=== PATIENT | male | born 1970 | race Caucasian/White ===

== ENCOUNTER 2018-01-04 16:08 | Emergency (ER) | payer OTHER ==
[2018-01-04 16:08] VITALS: BMI 34.1
[2018-01-04 16:44] VITALS: RESP 18; TEMP 98.2
[2018-01-04] MEDS ORDERED: Sodium Chloride 0.9% 500 ML IV STA (17:46)
[2018-01-04] MEDS ORDERED: Morphine 4 mg/ml ISec IVP STA (17:46)
[2018-01-04] MEDS ORDERED: Morphine 2 mg/ml ISec IVP STA (17:54)
--- NOTE | 2018-01-04 18:07 | ED PDOC ---
Arrival/HPI - General Chief Complaint: Abdominal Pain Time Seen by Provider: 01/04/18 17:45 Historian: Patient - History of Present Illness Narrative History of Present Illness (Text): 01/04/18 18:01 Pt is a 47 year old male who presents with left anterolateral abdominal pain for the past 8 months. Pt states the pain starts in the left upper quadrant and radiates to the back. Describes the pain as constant ache that is worse while lying down. PMD is Dr. Vyas who did a workup for his symptoms including a CT and labs that according to the patient, showed nothing and no medication given. Denies nausea, chest pain, sob, headache, fever, chills , GI bleed, change in appetite or worsening of pain with meals or any other complaints. Normal BM and micturition. 01/05/18 00:42 Time/Duration: > month Symptom Onset: Gradual Symptom Course: Unchanged Quality: Aching, Pressure Severity Level: Moderate Activities at Onset: Rest Context: Home Past Medical History - Provider Review Nursing Documentation Reviewed: Yes - Travel History Have you recently traveled outside [place] w/in the past 3 mons?: No - Past History Past History: No Previous - Infectious Disease Hx of Infectious Diseases: None - Gastrointestinal Hx Gastritis: Yes Hx Gastrointestinal Ulcer: Yes - Psychiatric Hx Substance Use: No - Anesthesia Hx Anesthesia: No Hx Anesthesia Reactions: No Hx Malignant Hyperthermia: No Family/Social History - Physician Review Nursing Documentation Reviewed: Yes Family/Social History: Unknown Family HX Smoking Status: Never Smoked Hx Alcohol Use: Yes Hx Substance Use: No Allergies/Home Meds Allergies/Adverse Reactions: Allergies No Known Allergies Allergy (Verified 01/04/18 17:44) Review of Systems - Physician Review All systems were reviewed & negative as marked: Yes - Review of Systems Constitutional: Normal Eyes: Normal ENT: Normal Respiratory: Normal Cardiovascular: Normal Gastrointestinal: Abdominal Pain Genitourinary Male: Normal Musculoskeletal: Normal Skin: Normal Neurological: Normal Endocrine: Normal Hemo/Lymphatic: Normal Psychiatric: Normal Physical Exam Vital Signs Reviewed: Yes Vital Signs Temp Pulse Resp BP Pulse Ox 01/04/18 19:24 69 18 129/93 H 100 01/04/18 16:42 98.2 F 88 18 149/89 99 Temperature: Afebrile Blood Pressure: Normal Pulse: Regular Respiratory Rate: Normal Appearance: Positive for: Non-Toxic, Comfortable Pain Distress: Moderate Mental Status: Positive for: Alert and Oriented X 3 - Systems Exam Head: Present: Atraumatic, Normocephalic Pupils: Present: PERRL Extroacular Muscles: Present: EOMI Conjunctiva: Present: Normal Mouth: Present: Moist Mucous Membranes Neck: Present: Normal Range of Motion Respiratory/Chest: Present: Clear to Auscultation, Good Air Exchange. No: Respiratory Distress, Accessory Muscle Use Cardiovascular: Present: Regular Rate and Rhythm, Normal S1, S2. No: Murmurs Abdomen: Present: Tenderness (Left upper quadrant with referral to side and back ), Normal Bowel Sounds, Rovsing's Sign Present. No: Peritoneal Signs Back: Present: Normal Inspection Upper Extremity: Present: Normal Inspection. No: Cyanosis, Edema Lower Extremity: Present: Normal Inspection. No: Edema Neurological: Present: GCS=15, CN II-XII Intact, Speech Normal Skin: Present: Warm, Dry, Normal Color. No: Rashes Psychiatric: Present: Alert, Oriented x 3, Normal Insight, Normal Concentration Medical Decision Making ED Course and Treatment: 01/04/18 18:07 Impression Pt is a 47 year old male who presents with left anterolateral abdominal pain for the past 8 months. Plan Abdom and Plevic CT w/o contrast Urinalysis, cbc, cmp, lipase, assess and dispo Progress Note CT imaging reveals multiple renal calculi bilateral, as was assessed by Dr. Vyas. Labs unremarkable US advised but patient declined Advised pt to follow up with PMD if pain continues. Pt VS stable and no pain on discharge - Lab Interpretations Lab Results: 01/04/18 17:50 01/04/18 17:50 Lab Results 01/04/18 18:15: Urine Color Yellow, Urine Appearance Clear, Urine pH 6.0, Ur Specific [place] 1.025, Urine Protein Negative, Urine Glucose (UA) Negative, Urine Ketones Trace H, Urine Blood Negative, Urine Nitrate Negative, Urine Bilirubin Negative, Urine Urobilinogen 0.2, Ur Leukocyte Esterase Negative 01/04/18 17:50: Sodium 142, Potassium 4.6, Chloride 103, Carbon Dioxide 28, Anion Gap 16, BUN 9, Creatinine 0.9, Est GFR ( Amer) > 60, Est GFR (Non- Af Amer) > 60, Random Glucose 103, Calcium 10.0, Total Bilirubin 0.8, AST 28, ALT 44, Alkaline Phosphatase 58, Total Protein 8.0, Albumin 4.5, Globulin 3.6, Albumin/Globulin Ratio 1.3, Lipase 223 01/04/18 17:50: PT 11.4, INR 1.00, APTT 31.1 01/04/18 17:50: WBC 4.7, RBC 5.21, Hgb 15.0, Hct 44.1, MCV 84.6, MCH 28.8, MCHC 34.0, RDW 12.4, Plt Count 239, MPV 9.1, Gran % 38.1 L, Lymph % (Auto) 51.8 H, [place] % (Auto) 7.5 H, Eos % (Auto) 2.4, Baso % (Auto) 0.2, Gran # 1.78, Lymph # ( Auto) 2.4, [place] # (Auto) 0.4, Eos # (Auto) 0.1, Baso # (Auto) 0.01 I have reviewed the lab results: Yes (WNL) - RAD Interpretation Narrative RAD Interpretations (Text): 01/04/18 19:26 CT reveals punctate radiodense calculi scattered infrequently of bilateral kidneys; no obstruction appreciated 01/04/18 19:57 Radiology Orders: 01/04/18 17:46 ABD & PELVIS W/O PO OR IV CONT [CT] Stat Supervisor Cook Room: Radiologist - Medication Orders Current Medication Orders: Discontinued Medications Sodium Chloride (Sodium Chloride 0.9%) 500 mls @ 1,000 mls/hr IV .Q30M STA Stop: 01/04/18 18:15 Last Admin: 01/04/18 18:01 Dose: 1,000 mls/hr eMAR Start Stop Document 01/04/18 18:01 [facility] (Rec: 01/04/18 18:01 [facility] [id number]) Intravenous Solution Start Date 01/04/18 Start Time 18:01 End Date 01/04/18 End time 18:31 Total Infusion Time 30 Morphine Sulfate (Morphine) 2 mg IVP STAT STA Stop: 01/04/18 17:55 Last Admin: 01/04/18 18:01 Dose: 2 mg MAR Pain Assessment Document 01/04/18 18:01 [facility] (Rec: 01/04/18 18:01 [facility] [id number]) Pain Reassessment Is this a pain reassessment? No IVP Administration Document 01/04/18 18:01 [facility] (Rec: 01/04/18 18:01 [facility] [id number]) Charges for Administration # of IVP Administrations 1 Disposition/Present on Arrival - Present on Arrival Any Indicators Present on Arrival: Yes History of DVT/PE: No History of Uncontrolled Diabetes: No Urinary Catheter: No History of Decub. Ulcer: No History Surgical Site Infection Following: None - Disposition Have Diagnosis and Disposition been Completed?: Yes Diagnosis: Renal colic on left side, Abdominal pain, Bilateral nephrolithiasis Disposition: HOME/ ROUTINE Disposition Time: 19:27 Patient Plan: Discharge Condition: STABLE Discharge Instructions (ExitCare): Renal Colic (DC), Kidney Stones in Adults Additional Instructions: Dear Patient After reviewing your labs and imaging, there are multiple stones located in the kidneys that can cause pain in the abdomen and back. This is a condition that needs to be monitored by your Primary Care doctor. Should you have a worsening of symptoms in the next 24 hrs, return to the emergency room for evaluation. You can take ibuprofen for pain and inflammation. All the best in your recovery Prescriptions: Ibuprofen [Motrin Tab] 600 mg PO Q6 PRN 5 Days #20 tab PRN Reason: pain/fever [facility] - Follow up with primary Forms: [employer] (Mongolian)
[2018-01-04 18:14] LABS: BASO # 0.01 K/mm3 (0.0-2.0); BASO % 0.2 % (0.0-3.0); EOS # 0.1 (0.0-0.7); EOS % 2.4 % (1.5-5.0); GRAN # 1.78 (1.4-6.5); GRAN % 38.1 % (50.0-68.0); LYMPH # 2.4 (1.2-3.4); LYMPH % 51.8 % (22.0-35.0); MEAN CELL VOLUME 84.6 fl (80.0-105.0); MEAN CORPUSCULAR HEMOGLOBIN 28.8 pg (25.0-35.0); MEAN PLATELET VOLUME 9.1 fl (7.0-11.0); MONO # 0.4 (0.1-0.6); MONO % 7.5 % (1.0-6.0); RBC 5.21 10^6/uL (3.5-6.1); RED CELL DISTRIBUTION WIDTH 12.4 % (11.5-14.5); WHITE BLOOD COUNT 4.7 10^3/ul (4.5-11.0)
[2018-01-04 18:17] LABS: ALB/GLOB RATIO 1.3 (1.1-1.8); ALBUMIN 4.5 g/dL (3.0-4.8); ALT/SGPT 44 U/L (7-56); AST/SGOT 28 U/L (17-59); BLOOD UREA NITROGEN 9 mg/dL (7-21); GFR AFRICAN-AMERICAN > 60; GFR NON-AFRICAN AMERICAN > 60; LIPASE 223 U/L (23-300)
[2018-01-04 18:20] LABS: PARTIAL THROMBOPLASTIN TIME 31.1 Seconds (25.1-36.5); PROTHROMBIN TIME 11.4 SECONDS (9.4-12.5)
--- NOTE | 2018-01-04 18:43 | CT ---
PROCEDURE: CT Abdomen and Pelvis without intravenous contrast HISTORY: abdominal pain COMPARISON: Enhanced abdomen and pelvis CT 03/12/2016. TECHNIQUE: Helical CT of the abdomen and pelvis was performed without oral or intravenous contrast as per referring physician request.. Contrast Dose: None Radiation dose: Total exam DLP = 1016.73 mGy-cm. This CT exam was performed using one or more of the following dose reduction techniques: Automated exposure control, adjustment of the mA and/or kV according to patient size, and/or use of iterative reconstruction technique. FINDINGS: LOWER THORAX: Cardiac silhouette appears upper limits normal. No pleural or pericardial effusion. No infiltrate bilaterally. LIVER: Unremarkable. No gross lesion or ductal dilatation. GALLBLADDER AND BILE DUCTS: Unremarkable. PANCREAS: Unremarkable. No gross lesion or ductal dilatation. SPLEEN: Unremarkable. ADRENALS: Unremarkable. No mass. KIDNEYS AND URETERS: Punctate intrarenal calculi are scattered both kidneys bilaterally but without obstructive uropathy apparent. No perinephric fluid collection or prominent reaction bilaterally. Ureters are normal in caliber bilaterally. VASCULATURE: Unremarkable. No aortic aneurysm. BOWEL: Unremarkable. No obstruction. No gross mural thickening. The stomach is distended with retained food. APPENDIX: Unremarkable. Normal appendix. PERITONEUM: Unremarkable. No free fluid. No free air. LYMPH NODES: Unremarkable. No enlarged lymph nodes. BLADDER: Urinary bladder is decompressed and otherwise appears unremarkable. REPRODUCTIVE: Unremarkable. BONES: No acute fracture. OTHER FINDINGS: None. IMPRESSION: Punctate radiodense calculi are scattered infrequently in both kidneys but without obstructive uropathy evident. Urinary bladder is decompressed and otherwise unremarkable. Further evaluation remaining abdominal pelvic viscera is limited due lack of contrast agents. No bowel obstruction, measure edema, ascites or free intraperitoneal gas is encountered. Cardiac silhouette appears upper limits normal. .
[2018-01-04 19:00] LABS: URINE BILIRUBIN NEGATIVE (NEGATIVE); URINE BLOOD NEGATIVE (NEGATIVE); URINE GLUCOSE (UA) NEGATIVE (NEGATIVE); URINE LEUKOCYTE ESTERASE NEGATIVE Leu/uL (NEGATIVE); URINE NITRATE NEGATIVE (NEGATIVE); URINE PROTEIN NEGATIVE mg/dL (<30 mg/dL); URINE UROBILINOGEN 0.2 E.U./dL (<1 E.U./dL)
[2018-01-04 19:09] LABS: URINE APPEARANCE CLEAR (CLEAR); URINE COLOR YELLOW (YELLOW)
[2018-01-04 19:28] VITALS: BP 129/93; PULSE 69; O2SAT 100
== END 2018-01-04 19:45 | disposition home or self-care (01) ==
LOC: ED 16:08
DX: N20.0 Calculus of kidney (principal)
CPT/HCPCS: 74176; 80053; 81003; 83690; 85025; 85610; 85730; 96374; 99284; J2270; J7040

== ENCOUNTER 2018-06-29 09:32 | Emergency (ER) | payer SELFPAY ==
[2018-06-29 09:32] VITALS: BMI 34.1
--- NOTE | 2018-06-29 09:53 | ED PDOC ---
Arrival/HPI - General Chief Complaint: Abdominal Pain Time Seen by Provider: 06/29/18 09:45 Historian: Patient - History of Present Illness Narrative History of Present Illness (Text): 06/29/18 09:50 A 47 year old male, whose past medical history includes kidney stones, presents to the emergency department complaining of intermittent left sided pain since 1 week ago. Patient reports pain radiates to his back and is a "pinching" sensation. Patient denies any testicular pain, fever, chills, shortness of breath, chest pain, diarrhea, nausea, vomiting, urinary symptoms, neck pain, headache, dizziness, or any other complaints. PMD: Dr. Christopher Vyas Time/Duration: 1 week Symptom Onset: Gradual Symptom Course: Unchanged Activities at Onset: Light Context: Home Past Medical History - Provider Review Nursing Documentation Reviewed: Yes - Past History Past History: No Previous - Infectious Disease Hx of Infectious Diseases: None - Cardiac Hx Cardiac Disorders: No - Pulmonary Hx Respiratory Disorders: No - Neurological Hx Neurological Disorder: No - HEENT Hx HEENT Disorder: No - Renal Hx Renal Disorder: No - Endocrine/Metabolic Hx Endocrine Disorders: No - Hematological/Oncological Hx Blood Disorders: No - Integumentary Hx Dermatological Disorder: No - Musculoskeletal/Rheumatological Hx Musculoskeletal Disorders: No - Gastrointestinal Hx Gastrointestinal Disorders: Yes Hx Gastritis: Yes Hx Gastrointestinal Ulcer: Yes - Genitourinary/Gynecological Hx Genitourinary Disorders: No - Psychiatric Hx Psychophysiologic Disorder: No Hx Substance Use: No - Anesthesia Hx Anesthesia: No Hx Anesthesia Reactions: No Hx Malignant Hyperthermia: No Family/Social History - Physician Review Nursing Documentation Reviewed: Yes Family/Social History: Unknown Family HX Smoking Status: Never Smoked Hx Alcohol Use: Yes Hx Substance Use: No Allergies/Home Meds Allergies/Adverse Reactions: Allergies No Known Allergies Allergy (Verified 06/29/18 09:39) Review of Systems - Physician Review All systems were reviewed & negative as marked: Yes - Review of Systems Constitutional: absent: Fevers, Night Sweats Respiratory: absent: SOB Cardiovascular: absent: Chest Pain Gastrointestinal: Abdominal Pain (+Left sided pain). absent: Diarrhea, Nausea, Vomiting Genitourinary Male: absent: Urinary Output Changes, Other (testicular pain) Musculoskeletal: Back Pain (+pain radiates to back ). absent: Neck Pain Neurological: absent: Headache, Dizziness Physical Exam Vital Signs Reviewed: Yes Vital Signs Temp Pulse Resp BP Pulse Ox 06/29/18 11:21 98.2 F 78 16 135/90 98 06/29/18 09:32 98.3 F 75 18 148/94 H 99 Temperature: Afebrile Blood Pressure: Hypertensive Pulse: Regular Respiratory Rate: Normal Appearance: Positive for: Well-Appearing, Non-Toxic, Comfortable Pain Distress: None Mental Status: Positive for: Alert and Oriented X 3 - Systems Exam Head: Present: Atraumatic, Normocephalic Pupils: Present: PERRL Extroacular Muscles: Present: EOMI Conjunctiva: Present: Normal Mouth: Present: Moist Mucous Membranes Neck: Present: Normal Range of Motion Respiratory/Chest: Present: Clear to Auscultation, Good Air Exchange. No: Respiratory Distress, Accessory Muscle Use Cardiovascular: Present: Regular Rate and Rhythm, Normal S1, S2. No: Murmurs Abdomen: Present: Tenderness (+tenderness in the left upper quadrant and epigastric area ). No: Distention, Normal Bowel Sounds, Peritoneal Signs, Rebound, Guarding, McBurney's Point Tender, Rovsing's Sign Present, Hernias, Feeding Tubes, Ostomy Tubes, Mass/Organomegaly Back: Present: Normal Inspection Upper Extremity: Present: Normal Inspection. No: Cyanosis, Edema Lower Extremity: Present: Normal Inspection. No: Edema Neurological: Present: GCS=15, CN II-XII Intact, Speech Normal Skin: Present: Warm, Dry, Normal Color. No: Rashes Psychiatric: Present: Alert, Oriented x 3, Normal Insight, Normal Concentration Medical Decision Making ED Course and Treatment: 06/29/18 9:57 Impression: 47 year old male presenting to the Emergency department complaining of left sided pain. Differential Diagnosis included but are not limited to: Kidney stones vs. pancreatitis vs. gastritis Plan: -- CT of Abdomen and Pelvis without PO or IV contrast -- CMP -- Lipase -- Magnesium -- CBC -- PEpcid -- Toradol -- IV Fluids -- Urinalysis -- Reassess and disposition Prior Visits: Notes and results from previous visits were reviewed. Patient was last seen in the emergency department on 01/05/18 for left anterolateral abdominal pain and was discharged when patient's condition stabled and was advised to have his condition be monitored by PMD. Progress Notes: 06/29/18 11:13 Dictator: Madison Nash MD Procedure: CT of Abdomen and Pelvis without PO or IV contrast Impression: Punctate nonobstructing stones in both kidneys. Asymmetric mild fullness in the left collecting system and mild prominence of the left ureteral could represent recent passage of punctate stones. No evidence of obstructive uropathy. 06/29/18 11:21 Patient is feels better. Abdomen soft and not tender. CT results reviewed with patient. He will make sure to follow up with his primary care doctor and also a Urologist. Dr. Rodríguez. He was advised to return to the ED if symptoms worsen or any other concern. - Lab Interpretations Lab Results: 06/29/18 10:20 06/29/18 10:20 Lab Results 06/29/18 10:20: Sodium 142, Potassium 4.5, Chloride 104, Carbon Dioxide 28, Anion Gap 15, BUN 12, Creatinine 0.7 L, Est GFR ( Amer) > 60, Est GFR ( Non-Af Amer) > 60, Random Glucose 92, Calcium 9.5, Magnesium 2.0, Total Bilirubin 1.1, AST 28, ALT 45, Alkaline Phosphatase 63, Total Protein 8.0, Albumin 4.5, Globulin 3.5, Albumin/Globulin Ratio 1.3, Lipase 110 06/29/18 10:20: Urine Color Light yellow, Urine Appearance Clear, Urine pH 6.5, Ur Specific [place] 1.020, Urine Protein Negative, Urine Glucose (UA) Negative, Urine Ketones Negative, Urine Blood Negative, Urine Nitrate Negative, Urine Bilirubin Negative, Urine Urobilinogen 0.2, Ur Leukocyte Esterase Negative 06/29/18 10:20: WBC 4.5, RBC 5.44, Hgb 15.5, Hct 44.9, MCV 82.5, MCH 28.5, MCHC 34.5, RDW 12.7, Plt Count 261, MPV 9.3, Gran % 35.4 L, Lymph % (Auto) 53.7 H, [place] % (Auto) 9.1 H, Eos % (Auto) 1.6, Baso % (Auto) 0.2, Gran # 1.59, Lymph # ( Auto) 2.4, [place] # (Auto) 0.4, Eos # (Auto) 0.1, Baso # (Auto) 0.01 - RAD Interpretation Radiology Orders: 06/29/18 09:54 ABD & PELVIS W/O PO OR IV CONT [CT] Stat - Medication Orders Current Medication Orders: Discontinued Medications Famotidine (Pepcid) 20 mg IVP STAT STA Stop: 06/29/18 09:55 Last Admin: 06/29/18 10:05 Dose: 20 mg IVP Administration Document 06/29/18 10:05 SRE (Rec: 06/29/18 10:07 SRE [id number]) Charges for Administration # of IVP Administrations 1 Sodium Chloride (Sodium Chloride 0.9%) 1,000 mls @ 1,000 mls/hr IV .Q1H STA Stop: 06/29/18 10:53 Last Admin: 06/29/18 10:07 Dose: 1,000 mls/hr eMAR Start Stop Document 06/29/18 10:07 SRE (Rec: 06/29/18 10:09 SRE [id number]) Intravenous Solution Start Date 06/29/18 Start Time 10:00 End Date 06/29/18 End time 11:00 Total Infusion Time 60 Ketorolac Tromethamine (Toradol) 30 mg IVP STAT STA Stop: 06/29/18 09:55 Last Admin: 06/29/18 10:09 Dose: 30 mg MAR Pain Assessment Document 06/29/18 10:09 SRE (Rec: 06/29/18 10:10 SRE [id number]) Pain Reassessment Is this a pain reassessment? Yes Sleep Is patient sleeping during reassessment? No Presence of Pain Presence of Pain Yes Pain Scale Used Pain Scale Used Numeric Location Left, Right or Bilateral Left Description Description Intermittent IVP Administration Document 06/29/18 10:09 SRE (Rec: 06/29/18 10:10 SRE [id number]) Charges for Administration # of IVP Administrations 1 - Scribe Statement The provider has reviewed the documentation as recorded by the Deb Kirkpatrick All medical record entries made by the Jessiibe were at my direction and personally dictated by me. I have reviewed the chart and agree that the record accurately reflects my personal performance of the history, physical exam, medical decision making, and the department course for this patient. I have also personally directed, reviewed, and agree with the discharge instructions and disposition. Disposition/Present on Arrival - Present on Arrival Any Indicators Present on Arrival: No History of DVT/PE: No History of Uncontrolled Diabetes: No Urinary Catheter: No History of Decub. Ulcer: No History Surgical Site Infection Following: None - Disposition Have Diagnosis and Disposition been Completed?: Yes Diagnosis: Renal colic on left side Disposition: HOME/ ROUTINE Disposition Time: 11:21 Patient Plan: Discharge Condition: IMPROVED Discharge Instructions (ExitCare): Renal Colic (DC) Additional Instructions: JEFFRY VELASCO, thank you for letting us take care of you today. Your provider was Pawan Guallpa DO and you were treated for Kidney Stones. The emergency medical care you received today was directed at your acute symptoms. If you were prescribed any medication, please fill it and take as directed. It may take several days for your symptoms to resolve. Return to the Emergency Department if your symptoms worsen, do not improve, or if you have any other problems. Please contact your doctor or call one of the physicians/clinics you have been referred to that are listed on the Patient Visit Information form that is included in your discharge packet. Bring any paperwork you were given at discharge with you along with any medications you are taking to your follow up visit. Our treatment cannot replace ongoing medical care by a primary care provider outside of the emergency department. Thank you for allowing the [facility] team to be part of your care today. If you had an X-Ray or CT scan: A Radiologist will review the ED reading if any change in treatment is needed we will contact you. If you had a blood, urine, or wound culture: It will take several days for the results, if any change in treatment is needed we will contact you. If you had an STI test: It will take 48 hours for the results. Please call after 1 week if you have not heard back. Prescriptions: Ibuprofen [Motrin] 600 mg PO Q6 PRN #30 tab PRN Reason: Pain, Moderate (4-7) Referrals: FAMILY PROVIDER,NO [Primary Care Provider] - Follow up with primary Austen Rodríguez MD [Staff Provider] - Follow up with primary Forms: [employer] ([place]), WORK NOTE
[2018-06-29] MEDS ORDERED: Sodium Chloride 0.9% 1,000 ML IV STA (09:54)
[2018-06-29 10:26] LABS: PH,URINE 6.5 (4.7-8.0); URINE BILIRUBIN NEGATIVE (NEGATIVE); URINE BLOOD NEGATIVE (NEGATIVE); URINE GLUCOSE (UA) NEGATIVE (NEGATIVE); URINE LEUKOCYTE ESTERASE NEGATIVE Leu/uL (NEGATIVE); URINE PROTEIN NEGATIVE mg/dL (<30 mg/dL); URINE UROBILINOGEN 0.2 E.U./dL (<1 E.U./dL)
[2018-06-29 10:27] LABS: URINE APPEARANCE CLEAR (CLEAR); URINE COLOR LIGHT YELLOW (YELLOW)
[2018-06-29 10:36] LABS: BLOOD UREA NITROGEN 12 mg/dL (7-21); GFR NON-AFRICAN AMERICAN > 60
[2018-06-29 10:37] LABS: ALB/GLOB RATIO 1.3 (1.1-1.8); ALBUMIN 4.5 g/dL (3.0-4.8); ALT/SGPT 45 U/L (7-56); AST/SGOT 28 U/L (17-59); CALCIUM 9.5 mg/dL (8.4-10.5); LIPASE 110 U/L (23-300)
[2018-06-29 10:38] LABS: BASO # 0.01 K/mm3 (0.0-2.0); BASO % 0.2 % (0.0-3.0); EOS # 0.1 (0.0-0.7); EOS % 1.6 % (1.5-5.0); GRAN # 1.59 (1.4-6.5); GRAN % 35.4 % (50.0-68.0); HEMOGLOBIN 15.5 g/dL (14.0-18.0); LYMPH # 2.4 (1.2-3.4); LYMPH % 53.7 % (22.0-35.0); MEAN CELL VOLUME 82.5 fl (80.0-105.0); MEAN CORPUSCULAR HEMOGLOBIN 28.5 pg (25.0-35.0); MEAN CORPUSCULAR HGB CONC 34.5 g/dl (31.0-37.0); MEAN PLATELET VOLUME 9.3 fl (7.0-11.0); MONO # 0.4 (0.1-0.6); MONO % 9.1 % (1.0-6.0); RBC 5.44 10^6/uL (3.5-6.1); RED CELL DISTRIBUTION WIDTH 12.7 % (11.5-14.5); WHITE BLOOD COUNT 4.5 10^3/ul (4.5-11.0)
--- NOTE | 2018-06-29 11:04 | CT ---
Date of service: 06/29/2018 PROCEDURE: CT Abdomen and Pelvis without intravenous contrast HISTORY: left abd/flank pain r/o kidney stones COMPARISON: 01/04/2018. TECHNIQUE: CT scan of the abdomen and pelvis was performed without administration of intravenous contrast. Oral contrast was not administered. Coronal and sagittal reformatted images were obtained. . Radiation dose: Total exam DLP = 781.22 mGy-cm. This CT exam was performed using one or more of the following dose reduction techniques: Automated exposure control, adjustment of the mA and/or kV according to patient size, and/or use of iterative reconstruction technique. FINDINGS: LOWER THORAX: The visualized lungs are clear. LIVER: Normal in size. No intrahepatic ductal dilatation. GALLBLADDER AND BILE DUCTS: No calcified gallstones. No biliary dilatation PANCREAS: Normal in size. No ductal dilatation. SPLEEN: Normal in size. ADRENALS: Normal in size. No discrete nodule. KIDNEYS AND URETERS: Both kidneys are normal in size. There are punctate nonobstructing stones in both kidneys. There is mild fullness in the left collecting system and mild asymmetric prominence of the left ureteral. No obstructing stone identified. . No hydronephrosis. VASCULATURE: No aortic aneurysm. BOWEL: The small bowel loops are normal in caliber. There is moderate amount of stool in the colon. No bowel dilatation or wall thickening. No bowel obstruction. APPENDIX: Normal appendix. PERITONEUM: No free fluid. No free air. LYMPH NODES: No enlarged lymph nodes. BLADDER: Partially decompressed. REPRODUCTIVE: The prostate gland is normal in size BONES: No acute fracture. OTHER FINDINGS: None. IMPRESSION: Punctate nonobstructing stones in both kidneys. Asymmetric mild fullness in the left collecting system and mild prominence of the left ureteral could represent recent passage of punctate stones. No evidence of obstructive uropathy.
[2018-06-29 11:22] VITALS: BP 135/90; PULSE 78; RESP 16; TEMP 98.2; O2SAT 98
== END 2018-06-29 11:16 | disposition home or self-care (01) ==
LOC: ED 09:32
DX: N23 Unspecified renal colic (principal)
CPT/HCPCS: 74176; 80053; 81003; 83690; 83735; 85025; 96361; 96374; 96375; 99283; J1885; J7030

== ENCOUNTER 2019-01-21 19:19 | Emergency (ER) | payer SELFPAY ==
[2019-01-21 19:50] VITALS: BMI 36.0
[2019-01-21 19:51] VITALS: RESP 18; O2SAT 98
[2019-01-21] MEDS ORDERED: Sodium Chloride 0.9% 1,000 ML IV STA (20:11)
[2019-01-21 21:24] LABS: BASO # 0.01 K/mm3 (0.0-2.0); BASO % 0.2 % (0.0-3.0); EOS # 0.2 (0.0-0.7); EOS % 4.1 % (1.5-5.0); HEMOGLOBIN 14.6 g/dL (14.0-18.0); LYMPH # 2.8 (1.2-3.4); MEAN CELL VOLUME 83.4 fl (80.0-105.0); MEAN CORPUSCULAR HEMOGLOBIN 28.1 pg (25.0-35.0); MEAN CORPUSCULAR HGB CONC 33.7 g/dl (31.0-37.0); MONO # 0.4 (0.1-0.6); MONO % 7.2 % (1.0-6.0); RBC 5.19 10^6/uL (3.5-6.1); RED CELL DISTRIBUTION WIDTH 13.1 % (11.5-14.5); WHITE BLOOD COUNT 4.9 10^3/uL (4.5-11.0)
[2019-01-21 21:44] LABS: ALB/GLOB RATIO 1.2 (1.1-1.8); ALBUMIN 4.2 g/dL (3.0-4.8); ALT/SGPT 38 U/L (7-56); AST/SGOT 29 U/L (17-59); BLOOD UREA NITROGEN 16 mg/dL (7-21); CALCIUM 9.4 mg/dL (8.4-10.5); GFR NON-AFRICAN AMERICAN > 60; LIPASE 248 U/L (23-300)
--- NOTE | 2019-01-21 22:23 | ED PDOC ---
Arrival/HPI - General Chief Complaint: Abdominal Pain Historian: Patient - History of Present Illness Narrative History of Present Illness (Text): 01/22/19 00:40 48 year old male, whose past medical history includes kidney stones, presents to the emergency department with left flank pain, worsening today. Patient states he has had the pain for several months, and was diagnosed with very small kidney stones approximately 7 months ago. Patient denies any hematuria, nausea, vomiting, dysuria, chest pain, shortness of breath, or any other complaint. Time/Duration: 24 hours, Other Symptom Onset: Gradual Symptom Course: Unchanged Quality: Stabbing Activities at Onset: Light Context: Home Past Medical History - Provider Review Nursing Documentation Reviewed: Yes - Past History Past History: No Previous - Infectious Disease Hx of Infectious Diseases: None - Cardiac Hx Cardiac Disorders: No - Pulmonary Hx Respiratory Disorders: No - Neurological Hx Neurological Disorder: No - HEENT Hx HEENT Disorder: No - Renal Hx Renal Disorder: No - Endocrine/Metabolic Hx Endocrine Disorders: No - Hematological/Oncological Hx Blood Disorders: No - Integumentary Hx Dermatological Disorder: No - Musculoskeletal/Rheumatological Hx Musculoskeletal Disorders: No - Gastrointestinal Hx Gastrointestinal Disorders: Yes Hx Gastritis: Yes Hx Gastrointestinal Ulcer: Yes - Genitourinary/Gynecological Hx Genitourinary Disorders: No - Psychiatric Hx Psychophysiologic Disorder: No Hx Substance Use: No - Anesthesia Hx Anesthesia: No Hx Anesthesia Reactions: No Hx Malignant Hyperthermia: No Family/Social History - Physician Review Nursing Documentation Reviewed: Yes Family/Social History: No Known Family HX Smoking Status: Never Smoked Hx Alcohol Use: Yes Hx Substance Use: No Allergies/Home Meds Allergies/Adverse Reactions: Allergies No Known Allergies Allergy (Verified 01/21/19 19:50) Review of Systems - Physician Review All systems were reviewed & negative as marked: Yes - Review of Systems Respiratory: absent: SOB Cardiovascular: absent: Chest Pain Gastrointestinal: absent: Nausea, Vomiting Genitourinary Male: absent: Dysuria, Hematuria Musculoskeletal: Back Pain (Left flank pain) Physical Exam Vital Signs Reviewed: Yes Vital Signs Temp Pulse Resp BP Pulse Ox 01/21/19 19:50 98.4 F 70 18 143/90 98 Temperature: Afebrile Blood Pressure: Normal Pulse: Regular Respiratory Rate: Normal Appearance: Positive for: Well-Appearing, Non-Toxic, Comfortable Pain Distress: None Mental Status: Positive for: Alert and Oriented X 3 - Systems Exam Head: Present: Atraumatic, Normocephalic Pupils: Present: PERRL Extroacular Muscles: Present: EOMI Conjunctiva: Present: Normal Mouth: Present: Moist Mucous Membranes Neck: Present: Normal Range of Motion Respiratory/Chest: Present: Clear to Auscultation, Good Air Exchange. No: Respiratory Distress, Accessory Muscle Use Cardiovascular: Present: Regular Rate and Rhythm, Normal S1, S2. No: Murmurs Abdomen: No: Tenderness, Distention, Peritoneal Signs Back: Present: CVA Tenderness (Mild CVA tenderness) Upper Extremity: Present: Normal Inspection. No: Cyanosis, Edema Lower Extremity: Present: Normal Inspection. No: Edema Neurological: Present: GCS=15, CN II-XII Intact, Speech Normal Skin: Present: Warm, Dry, Normal Color. No: Rashes Psychiatric: Present: Alert, Oriented x 3, Normal Insight, Normal Concentration Medical Decision Making ED Course and Treatment: 01/21/19 22:22 Impression: 48 year old male presents with left flank pain. Plan: -- Toradol -- CT ABD & Pelvis -- Urine cultures -- Reassess and disposition Prior Visits: Notes and results from previous visits were reviewed. Progress Notes: CT Abdomen and Pelvis without IV contrast CLINICAL HISTORY: LEFT FLANK PAIN TECHNIQUE: Axial computed tomography images of the abdomen and pelvis without intravenous contrast. 928.10 mGy-cm CONTRAST: Without COMPARISON: Comparison is made to previous examination dated 06/29/2018. FINDINGS: LUNG BASES: The lung bases appear clear. No pleural effusions are seen. LIVER: There is hepatomegaly. The liver measured 18.4 cm in the midclavicular line. GALLBLADDER AND BILE DUCTS: The gallbladder appears within normal limits. No radioopaque gallstones are seen. No biliary ductal dilatation is evident. PANCREAS: Unremarkable. SPLEEN: Unremarkable. ADRENAL GLANDS: Unremarkable. KIDNEYS, URETERS, AND BLADDER: The kidneys appear within normal limits. There is no hydronephrosis or hydroureter. A solitary punctate non-obstructing calculus is again seen in the anterior mid-upper left renal pole. A couple of punctate non-obstructing calculi are again seen in the lateral upper right renal pole. These calculi have remained radiographically stable in size and number. The urinary bladder appeared normal in size and configuration. STOMACH AND BOWEL: Unremarkable appearance of the stomach and bowel. No evidence of bowel obstruction. No evidence suggesting enteritis or colitis. APPENDIX: No evidence of acute appendicitis on CT examination. PERITONEUM: No free fluid. No free air. LYMPH NODES: No lymphadenopathy is evident. REPRODUCTIVE: Unremarkable as visualized. VASCULATURE: No evidence of abdominal aortic aneurysm. BONES: No aggressive appearing osseous lesion. No acute osseous pathology evident. IMPRESSION: 1. No acute intra-abdominal or pelvic abnormality. 2. Radiographically stable bilateral punctate non-obstructing renal calculi as described above. 3. Hepatomegaly. - Lab Interpretations Lab Results: Total Bilirubin 0.5 mg/dL (0.2-1.3) 01/21/19 21:00 AST 29 U/L (17-59) 01/21/19 21:00 ALT 38 U/L (7-56) 01/21/19 21:00 Alkaline Phosphatase 57 U/L (38-126) 01/21/19 21:00 Total Protein 7.8 g/dL (5.8-8.3) 01/21/19 21:00 Albumin 4.2 g/dL (3.0-4.8) 01/21/19 21:00 Globulin 3.6 gm/dL 01/21/19 21:00 Albumin/Globulin Ratio 1.2 (1.1-1.8) 01/21/19 21:00 Lipase 248 U/L (23-300) 01/21/19 21:00 - RAD Interpretation Radiology Orders: 01/21/19 20:15 ABD & PELVIS W/O PO OR IV CONT [CT] Stat - Medication Orders Current Medication Orders: Discontinued Medications Sodium Chloride (Sodium Chloride 0.9%) 1,000 mls @ 1,000 mls/hr IV .Q1H STA Stop: 01/21/19 21:10 Last Admin: 01/21/19 21:40 Dose: 1,000 mls/hr eMAR Start Stop Document 01/21/19 21:40 LA (Rec: 01/21/19 21:40 LA [id number]) Intravenous Solution Start Date 01/21/19 Start Time 21:40 Ketorolac Tromethamine (Toradol) 30 mg IVP STAT STA Stop: 01/21/19 20:12 Last Admin: 01/21/19 21:39 Dose: 30 mg MAR Pain Assessment Document 01/21/19 21:39 LA (Rec: 01/21/19 21:40 IN [id number]) Pain Reassessment Is this a pain reassessment? No Sleep Is patient sleeping during reassessment? No Presence of Pain Presence of Pain Yes Pain Scale Used Protocol: PSCALES Pain Scale Used Numeric Location Pain Location Body Site Abdomen IVP Administration Document 01/21/19 21:39 CASSANDRA (Rec: 01/21/19 21:40 IN [id number]) Charges for Administration # of IVP Administrations 1 - Scribe Statement The provider has reviewed the documentation as recorded by the Scribe Dustin Tejeda All medical record entries made by the Scribe were at my direction and personally dictated by me. I have reviewed the chart and agree that the record accurately reflects my personal performance of the history, physical exam, medical decision making, and the department course for this patient. I have also personally directed, reviewed, and agree with the discharge instructions and disposition. Disposition/Present on Arrival - Present on Arrival Any Indicators Present on Arrival: No History of DVT/PE: No History of Uncontrolled Diabetes: No Urinary Catheter: No History of Decub. Ulcer: No History Surgical Site Infection Following: None - Disposition Have Diagnosis and Disposition been Completed?: Yes Diagnosis: Renal colic on left side Disposition: HOME/ ROUTINE Disposition Time: 22:25 Condition: GOOD Discharge Instructions (ExitCare): Renal Colic (DC) Additional Instructions: JEFFRY VELASCO, thank you for letting us take care of you today. The emergency medical care you received today was directed at your acute symptoms. If you were prescribed any medication, please fill it and take as directed. It may take several days for your symptoms to resolve. Return to the Emergency Department if your symptoms worsen, do not improve, or if you have any other problems. Please contact your doctor or call one of the physicians/clinics you have been referred to that are listed on the Patient Visit Information form that is included in your discharge packet. Bring any paperwork you were given at discharge with you along with any medications you are taking to your follow up visit. Our treatment cannot replace ongoing medical care by a primary care provider outside of the emergency department. Thank you for allowing the [facility] team to be part of your care today. Follow up with your primary care doctor this week for re-evaluation and further management. Prescriptions: Ibuprofen [Motrin] 600 mg PO Q6 PRN #20 tab PRN Reason: Pain, Moderate (4-7) Referrals: [facility], [Non-Staff] - Follow up with primary Forms: [id number] ([place])
[2019-01-21 22:49] VITALS: BP 143/75; PULSE 72; TEMP 98.2
[2019-01-21 23:28] LABS: URINE BILIRUBIN NEGATIVE (NEGATIVE); URINE BLOOD TRACE-INTACT (NEGATIVE); URINE GLUCOSE (UA) NEGATIVE (NEGATIVE); URINE LEUKOCYTE ESTERASE NEGATIVE Leu/uL (NEGATIVE); URINE PROTEIN NEGATIVE mg/dL (<30 mg/dL); URINE UROBILINOGEN 0.2 E.U./dL (<1 E.U./dL)
[2019-01-21 23:34] LABS: URINE APPEARANCE CLEAR (CLEAR); URINE COLOR YELLOW (YELLOW)
[2019-01-21 23:44] LABS: URINE EPITHELIAL CELLS 0 - 2 /hpf (0-5); URINE RBC 0 - 2 /hpf (0-2); URINE WBC 0 - 2 /hpf (0-6)
--- NOTE | 2019-01-22 08:57 | CT ---
Date of service: 01/21/2019 PROCEDURE: CT Abdomen and Pelvis without intravenous contrast HISTORY: left flank pain COMPARISON: 06/29/2018 TECHNIQUE: Technique. Contrast dose: Radiation dose: Total exam DLP = 928.1 mGy-cm. This CT exam was performed using one or more of the following dose reduction techniques: Automated exposure control, adjustment of the mA and/or kV according to patient size, and/or use of iterative reconstruction technique. FINDINGS: LOWER THORAX: Unremarkable. LIVER: Unremarkable. No gross lesion or ductal dilatation. GALLBLADDER AND BILE DUCTS: Unremarkable. PANCREAS: Unremarkable. No gross lesion or ductal dilatation. SPLEEN: Unremarkable. ADRENALS: Unremarkable. No mass. KIDNEYS AND URETERS: Punctate stable bilateral renal calculi. No hydronephrosis. No solid mass. VASCULATURE: Unremarkable. No aortic aneurysm. No aortic atherosclerotic calcification or mural plaque present. BOWEL: Unremarkable. No obstruction. No gross mural thickening. APPENDIX: Unremarkable. Normal appendix. PERITONEUM: Unremarkable. No free fluid. No free air. LYMPH NODES: Unremarkable. No enlarged lymph nodes. BLADDER: Unremarkable. REPRODUCTIVE: Unremarkable. BONES: No acute fracture. OTHER FINDINGS: None. IMPRESSION: Punctate stable bilateral renal calculi. No acute pathology.
== END 2019-01-21 23:20 | disposition home or self-care (01) ==
LOC: ED 19:19
DX: N20.0 Calculus of kidney (principal)
CPT/HCPCS: 74176; 80053; 81001; 83690; 83735; 85025; 87086; 96374; 99283; J1885; J7030